=== PATIENT | female | born 1985 | race Caucasian/White ===

== ENCOUNTER 2018-04-01 09:09 | Emergency (ER) | payer OTHER ==
[~2018-04-01] VITALS: Ht 167.6 cm; Wt 76.8 kg
[2018-04-01 09:17] VITALS: TEMP 36.9; Ht 167.6 cm; Wt 76.8 kg
[2018-04-01] MEDS ORDERED: SODIUM CHLORIDE 0.9% 1000ML 1,000 ML IV STA (09:47)
[2018-04-01] MEDS ORDERED: MULT-506 PO (09:56)
[2018-04-01] MEDS ORDERED: FLUO20CA35 PO (09:56)
[2018-04-01] MEDS ORDERED: OMEG10007 PO (09:56)
[2018-04-01] MEDS ORDERED: CYAN100T PO (09:56)
[2018-04-01] MEDS ORDERED: CHOL100010 PO (09:56)
[2018-04-01] MEDS ORDERED: MAGN400T6 PO (09:56)
[2018-04-01 10:12] LABS: BASO % 0.6 %; BASO ABS # 0.04 K/uL (0-0.2); EOS % 1.1 %; EOS ABS # 0.07 K/uL (0-0.5); HEMOGLOBIN 12.6 g/dL (12.0-16.0); IG# 0.02 K/uL (0.00-0.02); LYMPH % 24.6 %; MEAN CELL VOLUME 89.2 fL (80-100); MEAN CORPUSCULAR HEMOGLOBIN 30.4 pg (25-34); MEAN CORPUSCULAR HGB CONC 34.1 g/dl (32-36); MEAN PLATELET VOLUME 9.6 fL (7.4-10.4); MONO % 9.7 %; MONO ABS # 0.63 K/uL (0.11-0.59); NEUT % 63.7 %; NEUT ABS # 4.15 K/uL (1.4-6.5); PLATELET COUNT 259 K/uL (130-400); RED CELL DISTRIBUTION WIDTH CV 12.8 % (11.5-14.5); RED CELL DISTRIBUTION WIDTH SD 41.1 fL (36.4-46.3); WHITE BLOOD COUNT 6.51 K/uL (4.8-10.8)
[2018-04-01 10:22] LABS: PTT PATIENT 25.9 SECONDS (21.0-31.0)
[2018-04-01 10:31] LABS: ALBUMIN 3.7 gm/dl (3.4-5.0); CALCIUM 8.6 mg/dl (8.5-10.1); CREATININE 0.76 mg/dl (0.60-1.20); POTASSIUM 3.8 mmol/L (3.5-5.1); TOTAL PROTEIN 7.4 gm/dl (6.4-8.2)
--- NOTE | 2018-04-01 12:10 | DIAGNOSTIC IMAGING REPORT ---
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 Uterus measures 10.4 cm maximum. Endometrial thickness 1.4 cm. Left ovary measures 2.7 cm. Normal vascular flow. Right ovary measures 3.1 cm. There is 1.9 cm follicular cyst. IMPRESSION: Right ovary 1.9 cm follicular cyst. Otherwise negative study. No evidence for an intrauterine gestational sac. The above report was generated using voice recognition software. It may contain grammatical, syntax or spelling errors. Electronically signed by: Casey Elliott M.D. 04/01/2018 12:09 PM Dictated Date/Time: 04/01/2018 12:05 PM
[2018-04-01 13:19] VITALS: BP 129/76; PULSE 68; O2SAT 99
--- NOTE | 2018-04-02 06:57 | EMERGENCY ROOM VISIT NOTE ---
ED Visit Note First contact with patient: 09:26 Chief Complaint: Vaginal bleeding. History of Present Illness: Ms. To is a 33-year-old white female who ambulates into the ED complaining of vaginal bleeding. Starkly patient reports she is para 0, 0. She has had no previous gynecological problems. She does report she had an IUD that was removed approximately 2 years ago without complications. Patient reports her normal menstrual cycle stopped approximately 2 weeks ago. At that time the cycle was normal duration and intensity. Then a day or so after the menstrual cycle stop she noted some spotting. Since that time she reports she has had daily spotting over the last week she had noticed passage of what she felt were clots mixed with "something." She has not saturated any tampons and reports she has been changing her tampons every 4 hours most of which times have at least a small amount of blood on the tampon. Additionally she reports intermittently over the last week she has been having cramping abdominal pain and breast tenderness. She reports at home she took 2 pregnancies both were positive. She is new to the area and contacted the [facility] gynecological group and was referred to the ED for further evaluation and care. Currently patient reports that she is symptom and pain-free. She reports when she has pain she occasionally takes ibuprofen but it is not severe. She has not identified any aggravating or alleviating factors related to her symptoms. She denies any associated lightheadedness, dizziness, headaches, shortness of breath, chest pain, nausea/vomiting, easy bruising, easy bleeding, unusual bleeding, urinary symptoms, hematuria, rectal bleeding. Review of Systems: As noted above in history of present illness. All body systems were reviewed and found to be negative as noted above. Past Medical History: Patient denies. Current Medications: Prozac, multivitamins, [place] fish oil. Allergies to Medications: Patient denies. Social History: Patient is currently employed; she feels safe in her home environment; she denies tobacco use. Physical Examination: Vital Signs: Date Time Temp Pulse Resp B/P (MAP) Pulse Ox O2 Delivery O2 Flow Rate FiO2 04/01/18 13:19 68 16 129/76 99 04/01/18 11:58 65 18 129/76 100 Room Air 04/01/18 10:19 69 18 103/79 100 Room Air 04/01/18 09:17 36.9 99 18 126/80 99 Room Air GENERAL: 33-year-old female in mild distress due to symptoms, nontoxic-appearing , afebrile and hemodynamically stable. NEUROLOGICAL: Awake, alert and oriented to person, place and time. Answering questions appropriately and following commands. Normal gait. Good hand eye coordination. SKIN: Warm, dry and pink. No soft tissue eruptions or trauma noted. HEENT: Atraumatic and normocephalic. PERRLA. Sclera white and conjunctiva pink. Oral cavity moist and pink. Pharynx is nonerythematous or edematous. Speech normal. No lymphadenopathy. Trachea midline. No jugular venous distention. BACK: No tenderness over the bony spine. No CVA tenderness. THORAX: Lungs sounds are clear to auscultation and equal bilaterally with symmetrical chest wall. No wheezing, rales or rhonchi. HEART: Regular rate and rhythm. No gallops, rubs or murmurs are appreciated. ABDOMEN: Flat, soft and nontender. Positive bowel sounds in all quadrants. No guarding, rigidity or organomegaly. GENITALS: External genitalia: Normal hair distribution over labia minor without pubic lice. Vulva without ulcers, vesicles or erythema. Bartholin's, [place]'s and urethral glands without discharge, erythema or palpable masses. Urethra without discharge or inflammation. Introitus well supported. No cystocele, urethrocele, or enterocele. Anus without hemorrhoids, discharge or skin tags. No cervical lymphadenopathy. Speculum exam: Vagina pink, mucosa not atrophy. Small amount of blood was noted in the posterior vaginal vault. Cervix 2 cm in diameter with a small closed os without bleeding. EXTREMITIES: Moves all extremities well on command and with purpose. ED Course: Patient is assessed as noted above. Patient's medication list was reviewed. Laboratory Testing: Test 04/01/18 09:56 04/01/18 10:00 Range/Units White Blood Count 6.51 4.8-10.8 K/uL Red Blood Count 4.15 4.2-5.4 M/uL Hemoglobin 12.6 12.0-16.0 g/dL Hematocrit 37.0 37-47 % Mean Corpuscular Volume 89.2 80-100 fL Mean Corpuscular Hemoglobin 30.4 25-34 pg Mean Corpuscular Hemoglobin Concent 34.1 32-36 g/dl Platelet Count 259 130-400 K/uL Mean Platelet Volume 9.6 7.4-10.4 fL Neutrophils (%) (Auto) 63.7 % Lymphocytes (%) (Auto) 24.6 % Monocytes (%) (Auto) 9.7 % Eosinophils (%) (Auto) 1.1 % Basophils (%) (Auto) 0.6 % Neutrophils # (Auto) 4.15 1.4-6.5 K/uL Lymphocytes # (Auto) 1.60 1.2-3.4 K/uL Monocytes # (Auto) 0.63 0.11-0.59 K/uL Eosinophils # (Auto) 0.07 0-0.5 K/uL Basophils # (Auto) 0.04 0-0.2 K/uL RDW Standard Deviation 41.1 36.4-46.3 fL RDW Coefficient of Variation 12.8 11.5-14.5 % Immature Granulocyte % (Auto) 0.3 % Immature Granulocyte # (Auto) 0.02 0.00-0.02 K/uL Prothrombin Time 10.7 9.0-12.0 SECONDS Prothromb Time International Ratio 1.0 0.9-1.1 Activated Partial Thromboplast Time 25.9 21.0-31.0 SECONDS Partial Thromboplastin Ratio 1.0 Sodium Level 137 136-145 mmol/L Potassium Level 3.8 3.5-5.1 mmol/L Chloride Level 108 98-107 mmol/L Carbon Dioxide Level 26 21-32 mmol/L Anion Gap 3.0 3-11 mmol/L Blood Urea Nitrogen 9 7-18 mg/dl Creatinine 0.76 0.60-1.20 mg/dl Est Creatinine Clear Calc Drug Dose 109.1 ml/min Estimated GFR () 118.6 Estimated GFR (Non- 102.3 BUN/Creatinine Ratio 11.3 10-20 Random Glucose 77 70-99 mg/dl Calcium Level 8.6 8.5-10.1 mg/dl Total Bilirubin 0.5 0.2-1 mg/dl Direct Bilirubin 0.2 0-0.2 mg/dl Aspartate Amino Transf (AST/SGOT) 15 15-37 U/L Alanine Aminotransferase (ALT/SGPT) 22 12-78 U/L Alkaline Phosphatase 59 45-117 U/L Total Protein 7.4 6.4-8.2 gm/dl Albumin 3.7 3.4-5.0 gm/dl Human Chorionic Gonadotropin, Quant 269 mIU/mL Urine Color YELLOW Urine Appearance CLEAR CLEAR Urine pH 6.5 4.5-7.5 Urine Specific [place] 1.004 1.000-1.030 Urine Protein NEG NEG Urine Glucose (UA) NEG NEG Urine Ketones NEG NEG Urine Occult Blood NEG NEG Urine Nitrite NEG NEG Urine Bilirubin NEG NEG Urine Urobilinogen NEG NEG Urine Leukocyte Esterase NEG NEG Urine Test POS NEG Pelvic Ultrasound/ Ultrasound: Was reviewed by myself and read by the radiology showing no evidence of intrauterine gestational sac. Uterus measures 10.4 cm maximum width and endometrial thickness of 1.4 cm. Left ovary measures 2.7 cm with normal vascular flow. Right ovary measures 3.1 cm with a 1.9 follicular cyst. Patient was hydrated with normal saline. Patient was reassessed multiple times during her stay in the emergency department. Patient's case was consulted with Dr. Lofton, buffer inflated pad; she recommended repeat quantitative beta-hCG in 2 days and office follow-up next week. Patient's case was reviewed with Dr. Gann; we agreed on diagnostic approach, treatment, disposition and plan. Patient was educated about today's findings and instructed on her treatment plan ; she verbalized understanding and this plan. Clinical Impression: Vaginal bleeding. Probable spontaneous . Disposition: Patient discharged home in stable condition accompanied by her fianc; prior to departure she was reassessed and subjectively reported she remained pain-free. Plan: Patient was encouraged use ibuprofen or acetaminophen as needed for pain. Patient was encouraged to avoid tampon use and use pads. Vaginal rest was encouraged. Patient was encouraged to return to the hospital for a repeat beta-hCG in 48 hours. Patient was encouraged to contact the gynecological group on Wednesday and request follow-up care and treatment. Patient was encouraged return the ED for worsening bleeding, uncontrolled pain, fevers or any new/concerning symptoms.
--- NOTE | 2018-04-04 12:10 | DIAGNOSTIC IMAGING REPORT ---
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 Uterus measures 10.4 cm maximum. Endometrial thickness 1.4 cm. Left ovary measures 2.7 cm. Normal vascular flow. Right ovary measures 3.1 cm. There is 1.9 cm follicular cyst. IMPRESSION: Right ovary 1.9 cm follicular cyst. Otherwise negative study. No evidence for an intrauterine gestational sac. The above report was generated using voice recognition software. It may contain grammatical, syntax or spelling errors. Electronically signed by: Casey Elliott M.D. 04/01/2018 12:09 PM Dictated Date/Time: 04/01/2018 12:05 PM
== END 2018-04-01 13:20 | disposition home or self-care (01) ==
LOC: C.EDB 09:10 → C.EDA 13:20
DX: N93.9 Abnormal uterine and vaginal bleeding, unspecified (principal); Z79.899 Other long term (current) drug therapy

== ENCOUNTER → 2018-04-04 | Outpatient (CLI) | payer OTHER ==
[~2018-04-04] MED LIST: CHOL100010 PO; CYAN100T PO; FLUO20CA35 PO; MAGN400T6 PO; MULT-506 PO; OMEG10007 PO; ONDA4TAB10 SL
== END | disposition home or self-care (01) ==
LOC: C.LAB 18:09
PROVIDERS: ATTEND Obstetrics & Gynecology
DX: O03.9 Complete or unspecified spontaneous abortion without complication (principal)

== ENCOUNTER → 2018-04-06 | Outpatient (CLI) | payer OTHER | END | disposition home or self-care (01) | LOC: C.LAB 17:56 | PROVIDERS: ATTEND Obstetrics & Gynecology | DX: O03.9 Complete or unspecified spontaneous abortion without complication (principal); Z3A.00 Weeks of gestation of pregnancy not specified ==

== ENCOUNTER → 2018-04-08 | Outpatient (CLI) | payer OTHER ==
[2018-04-08 10:33] LABS: BASO % 0.8 %; BASO ABS # 0.05 K/uL (0-0.2); EOS % 1.3 %; EOS ABS # 0.08 K/uL (0-0.5); HEMATOCRIT 38.6 % (37-47); IG# 0.02 K/uL (0.00-0.02); LYMPH % 33.9 %; LYMPH ABS # 2.04 K/uL (1.2-3.4); MEAN CELL VOLUME 89.8 fL (80-100); MEAN CORPUSCULAR HEMOGLOBIN 30.2 pg (25-34); MEAN PLATELET VOLUME 9.9 fL (7.4-10.4); MONO % 7.8 %; MONO ABS # 0.47 K/uL (0.11-0.59); NEUT % 55.9 %; NEUT ABS # 3.36 K/uL (1.4-6.5); PLATELET COUNT 277 K/uL (130-400); RED CELL DISTRIBUTION WIDTH CV 12.9 % (11.5-14.5); RED CELL DISTRIBUTION WIDTH SD 41.6 fL (36.4-46.3); WHITE BLOOD COUNT 6.02 K/uL (4.8-10.8)
[2018-04-08 10:45] LABS: MEAN CORPUSCULAR HGB CONC 33.7 g/dl (32-36)
[2018-04-08 10:59] LABS: ALKALINE PHOSPHATASE 61 U/L (45-117); ALT/SGPT 29 U/L (12-78); AST/SGOT 20 U/L (15-37); BLOOD UREA NITROGEN 11 mg/dl (7-18); CALCIUM 8.8 mg/dl (8.5-10.1); CARBON DIOXIDE 25 mmol/L (21-32); CREATININE 0.69 mg/dl (0.60-1.20); GLUCOSE 79 mg/dl (70-99); POTASSIUM 4.3 mmol/L (3.5-5.1); SODIUM 138 mmol/L (136-145); TOTAL PROTEIN 7.9 gm/dl (6.4-8.2)
== END | disposition home or self-care (01) ==
LOC: C.LAB1850 09:54
PROVIDERS: ATTEND Obstetrics & Gynecology
DX: O03.9 Complete or unspecified spontaneous abortion without complication (principal)

== ENCOUNTER 2018-04-12 17:32 | Emergency (ER) | payer OTHER ==
[~2018-04-12] VITALS: Ht 162.6 cm; Wt 76.3 kg
[~2018-04-12 17:32] MED LIST changes: -ONDA4TAB10 SL
[2018-04-12 17:37] VITALS: TEMP 36.7; Ht 162.6 cm; Wt 76.3 kg
[2018-04-12] MEDS ORDERED: FAMOTIDINE 20MG/5ML IV PUSH IV STA (18:14)
[2018-04-12] MEDS ORDERED: SODIUM CHLORIDE 0.9% 1000ML 1,000 ML IV STA (18:14)
[2018-04-12] MEDS ORDERED: IBUPROFEN 600 MG TAB PO STA (18:14)
--- NOTE | 2018-04-12 18:25 | EMERGENCY ROOM VISIT NOTE ---
History Report prepared by Brown: Maria D Ruiz Under the Supervision of: Dr. Michoacano Blancas M.D. First contact with patient: 17:56 Chief Complaint: VAGINAL BLEEDING Stated Complaint: SEVERE CRAMPING, MORE VAGINAL BLEEDING History of Present Illness The patient is a 33 year old female who presents to the Emergency Room with complaints of worsening vaginal bleeding. The patient states that last night she woke up to pain last night that she states felt similar to when she had gallstones, but states that the pain was lower in her abdomen and in her lower back. The patient states that she had nausea and vomiting, and had many more bowel movements than normal. The patient also states that she had a fever last night. The patient states that she has been peeing fine. The patient states that yesterday she was also bleeding more than she has been. The patient states that her pain is currently better, but she took Tylenol at around 1630. The patient states that she has not had any nausea today but has been having bouts of sharp pain. She states that her pain today is in her lower abdomen and lower back. She also states that she has a deep pain in her right buttock. The patient states that she was and had either a miscarriage or ectopic . She states her HCG levels were in the 400s. The patient states that she came in to the ED two weeks ago because she was bleeding, and she found out she was . She states that they thought she had a miscarriage, but then her hormone levels went up. The patient states that four days ago she went to her OB where they did another ultrasound. She states that her OB told her that her fallopian tubes were larger and darker than they should be, so they did not know exactly what happened, but suggested she get methotrexate immediately. The patient states that the second day afterwards she was feeling bloated, gassy, and uncomfortable. The patient also states that she felt like she had to poop a lot. Source of History: patient Onset: two weeks ago Position: other (vagina) Quality: other (bleeding ) Timing: worsening Associated Symptoms: + fevers, + nausea, + vomiting, + abdominal pain, + back pain, No urinary symptoms Review of Systems See HPI for pertinent positives and negatives. A total of ten systems were reviewed and were otherwise negative. Past Medical & Surgical Medical Problems: (1) Gallstone Social History Smoking Status: Never Smoker Marital Status: in relationship Occupation Status: employed Current/Historical Medications Scheduled Cholecalciferol (Vitamin D), 1 TAB PO DAILY Cyanocobalamin (Vitamin B-12), 1 TAB PO DAILY Fish Oil ([place]-3), 1 CAP PO DAILY Fluoxetine (Prozac), 20 MG PO DAILY Magnesium Oxide (Mag-Ox), 400 MG PO DAILY Multivitamin (Multivitamin), 1 TAB PO DAILY Ondasetron Odt (Zofran Odt), 4 MG SL Q6H Allergies Coded Allergies: No Known Allergies (Unverified , 04/12/18) Physical Exam Vital Signs Date Time Temp Pulse Resp B/P (MAP) Pulse Ox O2 Delivery O2 Flow Rate FiO2 04/12/18 19:25 76 16 130/76 99 Room Air 04/12/18 17:37 36.7 64 20 126/79 100 Room Air Physical Exam GENERAL: Awake, alert, well-appearing HENT: Normocephalic, atraumatic. Oropharynx unremarkable. EYES: Normal conjunctiva. Sclera non-icteric. NECK: Supple. No nuchal rigidity. RESPIRATORY: Clear to auscultation. No wheezes. Normal respiratory effort. CARDIAC: Normal rate. Normal rhythm. Extremities warm and well perfused. GI: Soft, non-distended. No rebound or guarding. No masses. Very mild suprapubic tenderness RECTAL: Deferred. MUSCULOSKELETAL: Atraumatic. Chest examination reveals no tenderness. LOWER EXTREMITIES: Calves are equal size bilaterally and non-tender. No edema NEURO: Normal sensorium. No sensory or motor deficits noted. No facial droop. SKIN: Warm and dry. No rash or jaundice noted. Medical Decision & Procedures Laboratory Results 04/12/18 18:20 Red Blood Count 3.90, Mean Corpuscular Volume 89.0, Mean Corpuscular Hemoglobin 29.7, Mean Corpuscular Hemoglobin Concent 33.4, Mean Platelet Volume 9.8, Neutrophils (%) (Auto) 73.8, Lymphocytes (%) (Auto) 19.5, Monocytes (%) (Auto) 5.9, Eosinophils (%) (Auto) 0.2, Basophils (%) (Auto) 0.3, Neutrophils # (Auto) 7.68, Lymphocytes # (Auto) 2.03, Monocytes # (Auto) 0.61, Eosinophils # (Auto) 0.02, Basophils # (Auto) 0.03 04/12/18 18:20 Test 04/12/18 18:20 04/12/18 19:25 White Blood Count 10.40 K/uL (4.8-10.8) Red Blood Count 3.90 M/uL (4.2-5.4) Hemoglobin 11.6 g/dL (12.0-16.0) Hematocrit 34.7 % (37-47) Mean Corpuscular Volume 89.0 fL (80-100) Mean Corpuscular Hemoglobin 29.7 pg (25-34) Mean Corpuscular Hemoglobin Concent 33.4 g/dl (32-36) Platelet Count 301 K/uL (130-400) Mean Platelet Volume 9.8 fL (7.4-10.4) Neutrophils (%) (Auto) 73.8 % Lymphocytes (%) (Auto) 19.5 % Monocytes (%) (Auto) 5.9 % Eosinophils (%) (Auto) 0.2 % Basophils (%) (Auto) 0.3 % Neutrophils # (Auto) 7.68 K/uL (1.4-6.5) Lymphocytes # (Auto) 2.03 K/uL (1.2-3.4) Monocytes # (Auto) 0.61 K/uL (0.11-0.59) Eosinophils # (Auto) 0.02 K/uL (0-0.5) Basophils # (Auto) 0.03 K/uL (0-0.2) RDW Standard Deviation 40.1 fL (36.4-46.3) RDW Coefficient of Variation 12.5 % (11.5-14.5) Immature Granulocyte % (Auto) 0.3 % Immature Granulocyte # (Auto) 0.03 K/uL (0.00-0.02) Prothrombin Time 10.7 SECONDS (9.0-12.0) Prothromb Time International Ratio 1.0 (0.9-1.1) Activated Partial Thromboplast Time 24.2 SECONDS (21.0-31.0) Partial Thromboplastin Ratio 0.9 Anion Gap 7.0 mmol/L (3-11) Est Creatinine Clear Calc Drug Dose 118.3 ml/min Estimated GFR () 132.9 Estimated GFR (Non- 114.7 BUN/Creatinine Ratio 11.6 (10-20) Calcium Level 8.9 mg/dl (8.5-10.1) Total Bilirubin 0.2 mg/dl (0.2-1) Aspartate Amino Transf (AST/SGOT) 16 U/L (15-37) Alanine Aminotransferase (ALT/SGPT) 27 U/L (12-78) Alkaline Phosphatase 56 U/L (45-117) Total Protein 7.6 gm/dl (6.4-8.2) Albumin 3.8 gm/dl (3.4-5.0) Globulin 3.8 gm/dl (2.5-4.0) Albumin/Globulin Ratio 1.0 (0.9-2) Human Chorionic Gonadotropin, Quant 276 mIU/mL Urine Color YELLOW Urine Appearance CLEAR (CLEAR) Urine pH 5.0 (4.5-7.5) Urine Specific [place] 1.008 (1.000-1.030) Urine Protein NEG (NEG) Urine Glucose (UA) NEG (NEG) Urine Ketones NEG (NEG) Urine Occult Blood NEG (NEG) Urine Nitrite NEG (NEG) Urine Bilirubin NEG (NEG) Urine Urobilinogen NEG (NEG) Urine Leukocyte Esterase NEG (NEG) Laboratory results reviewed by me Medications Administered Medications (Trade) Dose Ordered Sig/[place] Route Start Time Stop Time Status Last Admin Dose Admin Sodium Chloride 1,000 ml @ 999 mls/hr Q1H1M STAT IV 04/12/18 18:14 04/12/18 19:14 DC 04/12/18 18:33 999 MLS/HR Ibuprofen (Motrin Tab) 600 mg NOW STAT PO 04/12/18 18:14 04/12/18 18:16 DC 04/12/18 18:34 600 MG Famotidine (Pepcid 20mg Iv Push) 20 mg ONE STAT IV 04/12/18 18:14 04/12/18 18:16 DC 04/12/18 18:33 20 MG ED Course 175: The patient was evaluated in room C5. A complete history and physical exam was performed. 1813: Ordered Famotidine 20 mg IV, Ibuprofen 600 mg PO, and Sodium Chloride 1000 ml @ 999 mls/hr. 1924: I reevaluated the patient. Discussed results and discharge instructions: She verbalized understanding and agreement. The patient is ready for discharge. Medical Decision Differential diagnosis: Etiologies such as ectopic , dysfunction uterine bleeding, bleeding dyscrasia, trauma, infection, as well as others were entertained. Patient received methotrexate 4 days ago for of unknown location. . Began to experience cramping bloating and vaginal bleeding. Nausea times. Benign abdomen at this point. Just had an ultrasound on Wednesday. Do not believe this is torsion. Doubt perforation or ruptured ectopic. Doubt UTI. Labs for hepatitis and pancreatitis were sent along with blood counts. Likely this is medication side effects of methotrexate treatment course. Blood count without significant abnormality. HCG level is decreasing and there is no signs of anemia. Do not believe need additional imaging today. 1 dose of Motrin given. Will avoid additional NSAIDs. Patient continues Tylenol at home and given Zofran if needed. Recommend she continue to follow with her OB. HCG level is decreasing and there is no signs of anemia. Patient in agreement with plan. Medication Reconcilliation Current Medication List: was personally reviewed by me Blood Pressure Screening Patient's blood pressure: Normal blood pressure Impression Primary Impression: Vaginal bleeding Additional Impression: Miscarriage Scribe Attestation The scribe's documentation has been prepared under my direction and personally reviewed by me in its entirety. I confirm that the note above accurately reflects all work, treatment, procedures, and medical decision making performed by me. Departure Information Dispostion Home / Self-Care Prescriptions Ondasetron Odt (ZOFRAN ODT) 4 Mg Tab 4 MG SL Q6H for Nausea, #10 TAB Prov: Michoacano Blancas M.D. 04/12/18 Referrals No Doctor, Assigned (PCP) Forms HOME CARE DOCUMENTATION FORM, IMPORTANT VISIT INFORMATION, WORK / SCHOOL INSTRUCTIONS Patient Instructions My [facility] Additional Instructions Please continue to follow with your cutter banana room. Utilize Tylenol up to 1g 4 times a day to help with your symptoms. Utilize the Zofran if you experience nausea. If you experience new or concerning symptoms at any time he can return here for reevaluation sooner. Problem Qualifiers
[2018-04-12 18:35] LABS: BASO % 0.3 %; BASO ABS # 0.03 K/uL (0-0.2); EOS % 0.2 %; EOS ABS # 0.02 K/uL (0-0.5); HEMATOCRIT 34.7 % (37-47); HEMOGLOBIN 11.6 g/dL (12.0-16.0); IG# 0.03 K/uL (0.00-0.02); LYMPH % 19.5 %; LYMPH ABS # 2.03 K/uL (1.2-3.4); MEAN CORPUSCULAR HEMOGLOBIN 29.7 pg (25-34); MEAN CORPUSCULAR HGB CONC 33.4 g/dl (32-36); MEAN PLATELET VOLUME 9.8 fL (7.4-10.4); MONO % 5.9 %; MONO ABS # 0.61 K/uL (0.11-0.59); NEUT % 73.8 %; NEUT ABS # 7.68 K/uL (1.4-6.5); PLATELET COUNT 301 K/uL (130-400); RED CELL DISTRIBUTION WIDTH CV 12.5 % (11.5-14.5); RED CELL DISTRIBUTION WIDTH SD 40.1 fL (36.4-46.3)
[2018-04-12 18:45] LABS: PTT PATIENT 24.2 SECONDS (21.0-31.0)
[2018-04-12 18:56] LABS: ALBUMIN 3.8 gm/dl (3.4-5.0); CALCIUM 8.9 mg/dl (8.5-10.1); CREATININE 0.67 mg/dl (0.60-1.20); POTASSIUM 3.5 mmol/L (3.5-5.1); TOTAL PROTEIN 7.6 gm/dl (6.4-8.2)
[2018-04-12 19:25] VITALS: BP 130/76; PULSE 76; O2SAT 99
[2018-04-12] MEDS ORDERED: ONDA4TAB10 SL (19:43)
== END 2018-04-12 20:05 | disposition home or self-care (01) ==
LOC: C.EDB 17:33 → C.EDC 20:05
DX: O03.9 Complete or unspecified spontaneous abortion without complication (principal); Z79.899 Other long term (current) drug therapy

== ENCOUNTER → 2018-04-12 | Outpatient (CLI) | payer OTHER | END | disposition home or self-care (01) | LOC: C.LAB1850 12:45 | PROVIDERS: ATTEND Obstetrics & Gynecology | DX: O00.90 Unspecified ectopic pregnancy without intrauterine pregnancy (principal) ==

== ENCOUNTER → 2018-04-15 | Outpatient (CLI) | payer OTHER ==
[~2018-04-15] MED LIST changes: +ONDA4TAB10 SL
[2018-04-15 09:35] LABS: BASO % 0.7 %; BASO ABS # 0.04 K/uL (0-0.2); EOS % 2.2 %; EOS ABS # 0.13 K/uL (0-0.5); HEMATOCRIT 34.9 % (37-47); HEMOGLOBIN 11.8 g/dL (12.0-16.0); IG# 0.01 K/uL (0.00-0.02); LYMPH % 24.6 %; LYMPH ABS # 1.47 K/uL (1.2-3.4); MEAN CELL VOLUME 89.7 fL (80-100); MEAN CORPUSCULAR HEMOGLOBIN 30.3 pg (25-34); MEAN PLATELET VOLUME 9.4 fL (7.4-10.4); MONO ABS # 0.72 K/uL (0.11-0.59); NEUT % 60.3 %; NEUT ABS # 3.61 K/uL (1.4-6.5); PLATELET COUNT 282 K/uL (130-400); RED CELL DISTRIBUTION WIDTH CV 12.7 % (11.5-14.5); RED CELL DISTRIBUTION WIDTH SD 40.6 fL (36.4-46.3); WHITE BLOOD COUNT 5.98 K/uL (4.8-10.8)
[2018-04-15 09:44] LABS: MEAN CORPUSCULAR HGB CONC 33.8 g/dl (32-36)
[2018-04-15 10:04] LABS: ALBUMIN 3.8 gm/dl (3.4-5.0); ALKALINE PHOSPHATASE 59 U/L (45-117); ALT/SGPT 28 U/L (12-78); AST/SGOT 18 U/L (15-37); BLOOD UREA NITROGEN 13 mg/dl (7-18); CREATININE 0.75 mg/dl (0.60-1.20); TOTAL PROTEIN 7.4 gm/dl (6.4-8.2)
== END | disposition home or self-care (01) ==
LOC: C.LAB1850 08:54
PROVIDERS: ATTEND Obstetrics & Gynecology
DX: O00.90 Unspecified ectopic pregnancy without intrauterine pregnancy (principal)

== ENCOUNTER 2019-12-20 23:22 | Inpatient (IN) ==
[2019-12-20] MEDS ORDERED: OXYTOCIN 30 UNITS/500 ML BAG IV PRN ×2 (23:41→23:56)
--- NOTE | 2019-12-20 23:48 | History & Physical Report ---
Date of Service December 20, 2019 Assessment & Plan (1) Supervision of elderly primigravida: (2) Rubella non-immune status, antepartum: early labor, discussed admission. pt desires and desires epidural, aware that may require pitocin in labor pattern irreg and she agrees. fhts categ 1. iv, labs. consult anesthesia History of Present Illness Chief Complaint: rectal pain, constant, painful ctx Primary Care Provider: Nahed Falcon MD 34yo at 40 2/7wks ega with edc 12/18/19 with above cc. She has had on and off ctx since wednesday. Very tired. Was in L&D earlier today with painful ctx, not in labor and sent home with ambien for rest. She then called within past hour noting extreme constant rectal pain with intermittent >30sec pain that could be ctx. she denies rom. no vb. cx exam earlier today was 3cm. pnc c/b 1. ama 2. needs mmr pp 3. 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 Rubella non-immune status, antepartum Anxiety and depression Allergies Allergy/AdvReac Type Severity Reaction Status Date / Time No Known Drug Allergies Allergy Verified 12/14/19 11:23 Home Medications Home Medications Medication Instructions Recorded Confirmed Type fluoxetine 20 mg capsule 20 mg PO DAILY #30 cap 09/13/19 12/20/19 Rx PNV cmb#95-ferrous fumarate-FA 1 tab PO DAILY 12/20/19 12/20/19 History [] Patient History Medical History (Updated 12/20/19 @ 14:29 by Litzy Hui MD, FACOG) Ectopic Gallstone (Resolved) Shingles age 14 Varicella Surgical History (Updated 05/04/19 @ 10:28 by Sylvia Do) S/P cholecystectomy S/P wisdom tooth extraction Family History (Updated 08/08/19 @ 08:20 by Sarah Myrick) Father Diabetes Dementia Depression Mother Heart murmur Osteoporosis Thyroid disease Family/Other Breast cancer Grandmother Cancer Dementia Grandfather Cancer Dementia Denies family history of Ovarian cancer Prostate cancer Myocardial infarction Colorectal cancer Social History (Updated 08/08/19 @ 08:21 by Sarah Myrick) Preferred Language: Macedonian Communication Ability: Effective Visual Impairment: No Limitations Hearing Ability: Normal Medical Pathology Teacher Required: No Beliefs That Will Affect Care: None marital status: marital status details: Fran Ace [phone]) [phone] Current Living Situation: Spouse Current Living Situation Comment: [place] current occupational status: employed 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 @ [employer] Feels Safe at Home: Yes Smoking Status: Never smoker Hx Alcohol Use: No Hx Substance Use: No Childhood Exposure to Second-Hand Smoke: No Dental Care, Regularly: No Physical Activity Frequency: 3-4 Times per Week Seatbelt Use: always Sunscreen Use: Yes Review of Systems no fever as per Subjective / HPI no dysuria and no abnormal vaginal bleeding Physical Exam Constitutional: WD/WN, vitals as above Gastrointestinal (Abdomen): Percussion/Palpation: abdomen soft (gravid); abdomen nontender Musculoskeletal: no edema Neurologic: grossly normal Psychiatric: A+Ox3, euthymic affect Genitourinary: OB Exam Abdomen: + estimated weight (7-8#) Manual OB Exam: + cervical dilation 4 cm, + cervical effacement 100% and + station -1 OB Exam Monitor Tracing: + external FHT monitor used (130 mod variability, reactive), + external uterine monitor used (q4), + category I and + normal FHT variability Results & Data Vital Signs (Past 12 Hours) Vital Signs Pulse BP 12/20/19 23:42 69 134/81 Coding Level of Care Code None Diagnoses Supervision of elderly primigravida O09.519 Rubella non-immune status, antepartum O99.89; Z28.3
[2019-12-21] MEDS: LACTATED RINGER'S 1,000 ML IV PRN ×3 (00:11→08:44)
[2019-12-21 00:17] LABS: Hematocrit (blood only) 35.9 % (37-47); Hemoglobin 12.6 g/dL (12.0-16.0); Mean Corpuscular Hemoglobin 31.5 pg (25-34); Mean Corpuscular Volume 89.8 fL (80-100); Mean Platelet Volume 10.5 fL (7.4-10.4); Platelet Count 241 K/uL (130-400); RDW Coefficient of Variation 13.1 % (11.5-14.5); RDW Standard Deviation 42.6 fL (36.4-46.3); White Blood Count 17.89 K/uL (4.8-10.8)
[2019-12-21 00:20] LABS: Mean Corpuscular Hgb Conc 35.1 g/dL (32-36)
[2019-12-21] MEDS ORDERED: ePHEDrine sulfate 50 MG/ML AMP ONE (00:28)
[2019-12-21] MEDS ORDERED: BUPIVACAINE 0.25% 30 ML VIAL ONE (00:29)
[2019-12-21] MEDS ORDERED: fentaNYL citrate 100 MCG/2 ML VIAL ONE (00:29)
[2019-12-21] MEDS ORDERED: fentaNYL 2MCG/ML ROPIV 1.25MG/ML 100 ML BAG EPI ONE (00:29)
--- NOTE | 2019-12-21 00:39 | Anesthesiology Consultation ---
Date of Service December 21, 2019 Assessment & Plan (1) Encounter for pre-operative examination: Chart Review Chart Review: Acceptable Risk for Labor Epidural Consults Requested none ASA ASA2 Proposed Anesthesia Anesthesia Type: Labor Epidural Risk / Benefits Reviewed With: PT / POA / Parent / Guardian, Accepts Plan and Informed Consent Obtained History Height/Weight Height: 5 ft 6 in Weight: 87.997 kg Allergies Allergy/AdvReac Type Severity Reaction Status Date / Time No Known Drug Allergies Allergy Verified 12/14/19 11:23 Medications Home Medications Medication Instructions Recorded Confirmed Last Taken fluoxetine 20 mg capsule 20 mg PO DAILY #30 cap 09/13/19 12/21/19 12/19/19 18:00 PNV cmb#95-ferrous fumarate-FA 1 tab PO DAILY 12/20/19 12/20/19 12/19/19 18:00 [] Active Medications Generic Name Dose Route Start Last Admin Trade Name Freq PRN Reason Stop Dose Admin Lactated Ringer's 1,000 mls @ 125 mls/hr 12/20/19 23:41 12/21/19 00:11 Lr IV 12/22/19 23:40 999 mls/hr .Q8H PRN Administration L&D Protocol Protocol Past Medical History Medical History Ectopic Gallstone (Resolved) Shingles age 14 Varicella Exercise / Class Metabolic Activity II 4-5 Yardwork/Stairs/Walk up hill Past Family History Family History Father Diabetes Dementia Depression Mother Heart murmur Osteoporosis Thyroid disease Family/Other Breast cancer Grandmother Cancer Dementia Grandfather Cancer Dementia Denies family history of Ovarian cancer Prostate cancer Myocardial infarction Colorectal cancer Past Surgical History Surgical History S/P cholecystectomy S/P wisdom tooth extraction Past Anesthesia History No Hx of Anesthesia Complications and No Family Hx of Anesthesia Complications History of PONV No Hx of PONV and No Hx of Motion Sickness Social History Smoking Status: Never smoker Do You Dip or Chew Tobacco: No Hx Alcohol Use: No Hx Substance Use: No substance use type: does not use Physical Exam Vital Signs Last Vital Signs Temp 98.4 F 12/20/19 23:50 Pulse 69 12/20/19 23:50 Resp 20 12/20/19 23:50 BP 134/81 12/20/19 23:50 ENMT Mouth: no dentition abnormality Thyromental Distance: > or= 3.5 Finger Breadths Mallampati Class: II Neck normal visual inspection Respiratory normal respiratory effort Auscultation: lungs clear to auscultation bilaterally Cardiovascular Rate/Rhythm: regular rate and regular rhythm Testing Laboratory Results 12/21/19 00:09
[2019-12-21] MEDS ORDERED: fentaNYL 2MCG/ML ROPIV 1.25MG/ML 100 ML BAG EPI PRN (00:59)
[2019-12-21] MEDS ORDERED: NALOXONE HCL 1 MG in SODIUM CHLORIDE 0.9% 1000ML 1,000 ML IV PRN (00:59)
[2019-12-21] MEDS ORDERED: NALOXONE HCL 0.4 MG/1 ML VIAL/CARP IV PRN (00:59)
[2019-12-21] MEDS ORDERED: DiphenhydrAMINE HCL 50 MG/ML VIAL IV PRN (00:59)
[2019-12-21] MEDS ORDERED: NALBUPHINE HCL INJ 10 MG/ML AMP IV PRN (00:59)
[2019-12-21] MEDS ORDERED: ONDANSETRON INJ 2 MG/ML 2 ML VIAL IV PRN (00:59)
[2019-12-21] MEDS ORDERED: ePHEDrine sulfate 50 MG/ML AMP IV PRN (00:59)
[2019-12-21] MEDS: CALCIUM CARBONATE 500 MG CHEWABLE TAB PO PRN ×2 (01:25→06:17)
--- NOTE | 2019-12-21 07:12 | Labor Progress Brief Note ---
Date of Service December 21, 2019 Subjective Reason For Note: Routine Evaluation comfortable with epidual and expresses relief that she got it. no pressure. occas left back pain. Assessment & Plan (1) Supervision of elderly primigravida: (2) Rubella non-immune status, antepartum: good progress in spont labor. fhts categ1. meconium stained fluid reviewed. Physical Exam Constitutional: WD/WN, vitals as above Psychiatric: A+Ox3, euthymic affect Genitourinary: Manual OB Exam: + cervical dilation 8 cm, + cervical effacement 100%, + station 0 and + amniotic fluid (AROM) meconium OB Exam Monitor Tracing: + external FHT monitor used (125 mod variability, reactive), + external uterine monitor used (q3), + category I and + normal FHT variability Results & Data Vital Signs (Past 12 Hours) Vital Signs Temp Pulse Resp BP Pulse Ox 12/21/19 07:07 70 99 12/21/19 07:02 65 98 12/21/19 06:57 64 98 12/21/19 06:55 62 124/72 12/21/19 06:52 65 98 12/21/19 06:47 63 98 12/21/19 06:42 62 98 12/21/19 06:40 58 L 130/71 12/21/19 06:37 57 L 99 12/21/19 06:32 60 98 12/21/19 06:27 59 L 99 12/21/19 06:26 62 131/79 12/21/19 06:22 62 99 12/21/19 06:17 67 99 12/21/19 06:12 60 99 12/21/19 06:09 63 131/86 12/21/19 06:07 65 99 12/21/19 06:02 65 99 12/21/19 05:57 59 L 97 12/21/19 05:54 60 133/69 12/21/19 05:52 59 L 97 12/21/19 05:47 58 L 97 12/21/19 05:42 59 L 97 12/21/19 05:39 58 L 131/65 12/21/19 05:37 58 L 97 12/21/19 05:32 58 L 97 12/21/19 05:27 62 97 12/21/19 05:25 61 117/60 12/21/19 05:22 74 97 12/21/19 05:17 63 97 12/21/19 05:12 65 97 12/21/19 05:10 57 L 119/64 12/21/19 05:07 63 97 12/21/19 05:02 63 97 12/21/19 05:00 18 12/21/19 04:57 65 97 12/21/19 04:54 62 108/59 L 12/21/19 04:52 64 97 12/21/19 04:47 61 97 12/21/19 04:42 65 98 12/21/19 04:39 67 116/64 12/21/19 04:37 65 98 12/21/19 04:32 65 98 12/21/19 04:27 64 98 12/21/19 04:25 58 L 120/69 12/21/19 04:22 63 98 12/21/19 04:17 63 98 12/21/19 04:12 64 98 12/21/19 04:11 64 132/68 12/21/19 04:07 59 L 98 12/21/19 04:02 60 98 12/21/19 04:00 97.7 F 20 12/21/19 03:57 58 L 99 12/21/19 03:55 62 129/75 12/21/19 03:52 64 99 12/21/19 03:47 66 99 12/21/19 03:42 60 98 12/21/19 03:40 62 121/67 12/21/19 03:32 71 99 12/21/19 03:27 68 99 12/21/19 03:25 61 112/64 12/21/19 03:22 67 98 12/21/19 03:17 77 98 12/21/19 03:12 67 97 12/21/19 03:10 74 128/72 12/21/19 03:07 65 96 12/21/19 03:02 73 96 12/21/19 02:57 65 96 12/21/19 02:55 62 117/66 12/21/19 02:52 66 96 12/21/19 02:47 63 97 12/21/19 02:42 65 96 12/21/19 02:39 65 100/55 L 12/21/19 02:37 64 96 12/21/19 02:32 70 96 12/21/19 02:27 67 96 12/21/19 02:24 68 107/60 12/21/19 02:22 68 97 12/21/19 02:17 64 96 12/21/19 02:12 72 96 12/21/19 02:09 65 115/62 12/21/19 02:07 70 96 12/21/19 02:02 76 97 12/21/19 01:57 70 96 12/21/19 01:54 68 104/58 L 12/21/19 01:52 71 96 12/21/19 01:47 69 96 12/21/19 01:42 69 97 12/21/19 01:39 72 100/58 L 12/21/19 01:37 72 97 12/21/19 01:32 75 97 12/21/19 01:27 80 98 12/21/19 01:25 70 112/67 12/21/19 01:22 76 98 12/21/19 01:17 85 98 12/21/19 01:12 89 96 12/21/19 01:10 85 127/71 12/21/19 01:07 85 122/68 99 12/21/19 01:05 82 135/68 12/21/19 01:03 86 123/72 12/21/19 01:02 84 99 12/21/19 01:00 77 119/72 12/21/19 00:57 84 100 12/21/19 00:52 75 100 12/21/19 00:47 84 100 12/21/19 00:42 80 100 12/21/19 00:37 76 99 12/20/19 23:50 98.4 F 69 20 134/81 12/20/19 23:42 69 134/81 Coding Level of Care Code None Diagnoses Supervision of elderly primigravida O09.519 Rubella non-immune status, antepartum O99.89; Z28.3
[2019-12-21] MEDS ORDERED: Nursing to Pharmacy Communication ONE (13:20)
--- NOTE | 2019-12-21 14:43 | Delivery Summary ---
Vaginal Delivery Summary Date of Service December 21, 2019 Vaginal Delivery Summary Findings: Viable female with Apgars of 8 and 9. Baby delivered spontaneously over area a midline episiotomy, direct OA presentation. Thick meconium with good vigorous cry at terminated meconium resuscitation. Cord gases and cord blood samples obtained. Placenta delivered spontaneously, meconium stained, and sent for pathological evaluation. Midline episiotomy repaired with 4-0 and 2-0 Vicryl in a routine fashion. Estimated blood loss 300 cc. Labor note: The patient is a 34-year-old 2 para 0 with an EDC of 17 December, at 40+ weeks gestational age who was admitted in active labor. Patient had had prodromal contractions for 36 hours prior to admission. She was discharged home on the day of admission and returned later in active labor. 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 Her was screened and was found to be negative. Laboratory values for the show blood type of O+, antibody negative, rubella immune, hepatitis B negative, she had a negative cell free DNA screen, negative cystic fibrosis, negative maternal serum AFP, -1-hour Glucola x2, and a negative third trimester beta st rep culture. Upon admission the patient was 4 cm dilated 100% effaced tracing was category 2. Anesthesia was consulted and an epidural was placed. Patient progressed to 8 cm had spontaneous rupture of membranes with thick meconium. Patient progressed to full dilatation and began her second stage. Delivering physician assumed care for the patient at this point. The patient pushed for approximately 45 minutes delivering the viable female infant over the midline episiotomy. Cord was clamped and cut. Good vigorous cry at terminated meconium resuscitation. Cord gases cord blood samples obtained. Placenta was delivered spontaneously and sent for pathological evaluation. Midline episiotomy was repaired with 4-0 and 2-0 Vicryl. Estimated blood loss 300 cc. Sponge and needle count was correct.
[2019-12-21 15:04] LABS: Base Excess Cord Venous Blood -5.1 mEq/L (-7.7-1.9); Cord Venous Blood HCO3 21 mmol/L (18.4-26.8); Cord Venous Blood PCO2 41 mmHg (30.4-57.2); Cord Venous Blood PO2 32 mmHg (14.1-43.3); Cord Venous Blood pH 7.32 (7.20-7.44)
[2019-12-21] MEDS ORDERED: HYDROCORTISONE ACETATE 25 MG SUPP PR PRN (15:06)
[2019-12-21] MEDS ORDERED: BENZOCAINE 20% AER SPR 82.5 GM CAN EXT PRN (15:06)
[2019-12-21] MEDS ORDERED: SUPERCREAM 0.870% 15 GM JAR EXT PRN (15:06)
[2019-12-21] MEDS ORDERED: ACETAMINOPHEN W/CODEINE #3 1 TAB PO PRN (15:06)
[2019-12-21] MEDS ORDERED: OXYTOCIN 30 UNITS/500 ML BAG IV PRN (15:06)
[2019-12-21] MEDS ORDERED: DIPHTHERIA/TETANUS/PERTUSSIS 0.5 ML SYR/VIAL IM ONE (15:06)
[2019-12-21] MEDS ORDERED: ACETAMINOPHEN 325 MG TAB PO PRN (15:06)
[2019-12-21 15:09] LABS: Base Excess Cord Arterial Bld -7.3 mEq/L (-9-1.8); CO2 Cord Arterial Blood 64 mmHg (39.1-73.5); HCO3 Cord Arterial Blood 23 mmol/L (19.7-28.5); PO2 Cord Arterial Blood 21 mmHg (4.1-31.7); pH Cord Arterial Blood 7.17 (7.1-7.38)
[2019-12-21 15:13] LABS: Oxygen Sat Cord Arterial Blood < 60.0 % (<60)
--- NOTE | 2019-12-21 15:14 | Anesthesia Procedure Note ---
Date of Service December 21, 2019 Anesthesia Post Epidural Note Vital Signs Vital Signs: Temp Pulse Resp BP Pulse Ox 36.7 C 76 18 125/66 100 12/21/19 11:00 12/21/19 15:09 12/21/19 14:15 12/21/19 15:09 12/21/19 14:07 Pain Intensity Bilateral Perineal: Pain Intensity: 0 Notes Mental Status: alert / awake / arousable Nausea / Vomiting: adequately controlled Pain: adequately controlled Airway Patency, RR, SpO2: stable & adequate BP & HR: stable & adequate Hydration State: stable & adequate Neuraxial Anesthesia: was administered and sensory block is resolving Anesthetic Complications: no major complications apparent and Pt Satisfied with anesthetic care Epidural: Removed without complications and With tip intact
[2019-12-21] MEDS: IBUPROFEN 600 MG TAB PO PRN ×2 (15:34→22:17)
[2019-12-21] MEDS: DOCUSATE SODIUM 100 MG CAP PO SCH (20:27)
[2019-12-22 06:31] LABS: Hematocrit (blood only) 27.2 % (37-47); Hemoglobin 9.3 g/dL (12.0-16.0); Mean Corpuscular Hemoglobin 31.2 pg (25-34); Mean Corpuscular Hgb Conc 34.2 g/dL (32-36); Mean Corpuscular Volume 91.3 fL (80-100); Mean Platelet Volume 10.6 fL (7.4-10.4); Platelet Count 182 K/uL (130-400); RDW Coefficient of Variation 13.4 % (11.5-14.5); RDW Standard Deviation 44.5 fL (36.4-46.3); Red Blood Count 2.98 M/uL (4.2-5.4); White Blood Count 15.11 K/uL (4.8-10.8)
--- NOTE | 2019-12-22 06:48 | Obstetrical Progress Note ---
Date of Service December 22, 2019 Assessment & Plan (1) state: Recovering normally, routine pp care Subjective Ambulation: ambulating normally Voiding: no voiding problems Passing Gas:: Yes Diet Tolerance:: regular diet Lochia:: Small Feeding Type:: breast feeding Physical Exam Constitutional WD/WN, vitals as above Eyes PERRL, conjunctivae normal, anicteric sclerae Neck normal visual inspection Respiratory normal respiratory effort and able to speak in complete sentences; no respiratory distress and no labored breathing Cardiovascular Rate/Rhythm: regular rate and regular rhythm Extremities: no edema Chest (Breasts) Chest: normal inspection of chest Gastrointestinal (Abdomen) Inspection/Auscultation: abdomen normal to inspection Soft, postgravid Psychiatric A+Ox3, euthymic affect Genitourinary OB Exam Abdomen: + fundal height Fundus: + firm and + relation to umbilicus (fundus just below umbilicus); not tender Results & Data Vital Signs (Past 12 Hours) Vital Signs Temp Pulse Resp BP 12/22/19 04:00 98.6 F 70 18 111/66 12/22/19 00:00 98.2 F 70 18 117/70 12/21/19 20:30 97.5 F L 76 18 112/67
[2019-12-22] MEDS: DOCUSATE SODIUM 100 MG CAP PO SCH ×2 (08:15→20:48)
[2019-12-22] MEDS: PRENATAL VITAMIN 1 TAB PO SCH (08:15)
[2019-12-22] MEDS: IBUPROFEN 600 MG TAB PO PRN ×3 (08:16→22:41)
[2019-12-22] MEDS: FLUOXETINE HCL 20 MG CAP PO SCH (08:16)
[2019-12-22] MEDS ORDERED: bisacodyL 5 MG TABEC PO SCH (20:00)
[2019-12-23 06:01] LABS: Hematocrit (blood only) 25.4 % (37-47); Hemoglobin 8.7 g/dL (12.0-16.0)
--- NOTE | 2019-12-23 07:10 | Obstetrical Progress Note ---
Date of Service December 23, 2019 Assessment & Plan (1) state: MEET CRITERIA, HOME Subjective Ambulation: ambulating normally Voiding: no voiding problems Passing Gas:: Yes Lochia:: Small Feeding Type:: breast feeding Physical Exam Constitutional WD/WN, vitals as above (EXT NEG) Genitourinary normal external appearance Results & Data Vital Signs (Past 12 Hours) Vital Signs Temp Pulse Resp BP 12/22/19 23:35 98.1 F 74 16 119/63
[2019-12-23] MEDS: IBUPROFEN 600 MG TAB PO PRN (08:10)
[2019-12-23] MEDS: DOCUSATE SODIUM 100 MG CAP PO SCH (08:10)
[2019-12-23] MEDS: PRENATAL VITAMIN 1 TAB PO SCH (08:10)
[2019-12-23] MEDS: FLUOXETINE HCL 20 MG CAP PO SCH (08:10)
== END 2019-12-23 11:56 | disposition home or self-care (01) | DRG 807 ==
LOC: OPB 23:22 → 4S1 23:24 → 4S2 12-21 17:55

== ENCOUNTER 2023-02-28 23:34 | Inpatient (IN) ==
[2023-03-01] MEDS ORDERED: LIDOCAINE 1% LOCAL 20 ML VIAL INFIL PRN (00:28)
[2023-03-01] MEDS ORDERED: OXYTOCIN 30 UNITS/500 ML BAG IV PRN ×3 (00:28→14:16)
--- NOTE | 2023-03-01 00:40 | History & Physical Report ---
Date of Service March 01, 2023 Assessment & Plan (1) Elderly multigravida: Plan: multiparous female with intact membranes and early labor will ambulate and recheck for progress in 2 hours patient wishes to try unmedicated if possible History of Present Illness Primary Care Provider: Wale Smith III, CRNP Patient is a 38 yo female EDC 03/09/23 who presents at 38 6/7 weeks with leaking fluid and intermittent contractions. complicated by AMA status. testing has been reassuring. GBS-negative. Allergies Allergy/AdvReac Type Severity Reaction Status Date / Time No Known Drug Allergies Allergy Verified 02/25/23 15:39 Home Medications Medication Instructions Recorded Confirmed Type omega-3 fatty acids 1,000 mg 1,000 mg PO DAILY 01/02/20 02/25/23 History capsule (Fish Oil Concentrate) magnesium 200 mg tablet 200 mg PO DAILY 05/28/20 02/25/23 History docosahexaenoic acid [ DHA] PO 07/24/22 02/25/23 History ferrous sulfate PO 07/24/22 02/25/23 History nystatin-triamcinolone 100,000 1 applic topical BID 2 weeks #30 07/28/22 02/25/23 Rx unit/g-0.1 % topical cream grams fluoxetine 20 mg capsule See Rx Instructions .Route 01/06/23 02/25/23 Rx .COMPLEX #90 caps Patient History Medical History Anal fissure Ectopic treated with MTX Gallstone H/o Lyme disease Hemorrhoids state Shingles age 14 Varicella Surgical History S/P cholecystectomy S/P wisdom tooth extraction Family History Father Diabetes Dementia Depression Mother Heart murmur Osteoporosis Thyroid disease Dementia Family/Other Breast cancer Grandmother Cancer Dementia Grandfather Cancer Dementia Denies family history of Ovarian cancer Prostate cancer Myocardial infarction Colorectal cancer Social History Smoking Status: Never smoker Second Hand Exposure: No; Do You Dip or Chew Tobacco: No; Hx Alcohol Use: Yes Alcohol type: beer and wine Alcohol Intake Frequency: 2-3 x/Week Hx Substance Use: No Preferred Language: Kinyarwanda Communication Ability: Effective Visual Impairment: No Limitations Hearing Ability: Normal Corrective Therapist Required: No Beliefs That Will Affect Care: None marital status: marital status details: Fran Ace (37) [phone] Current Living Situation: Spouse and Family Current Living Situation Comment: lives with spouse, daughter, dog current occupational status: employed 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 @ [employer] How many Children do You have: 1 Feels Safe at Home: Yes Childhood Exposure to Second-Hand Smoke: No Diet: regular caffeine: Yes during the past year weight has: remained stable Dental Care, Regularly: No Physical Activity Frequency: 3-4 Times per Week Seatbelt Use: always Sunscreen Use: Yes Assistive Devices: None Review of Systems All systems reviewed & are unremarkable except as noted in HPI & below Physical Exam Constitutional: WD/WN, vitals as above Psychiatric: A+Ox3, euthymic affect Genitourinary: OB Exam Abdomen: + vertex, + estimated weight (7-8 pounds) and + regular contractions (Q4-5 minutes) Manual OB Exam: + cervical dilation 3 cm, + cervical effacement 80%, + station (-3) and + amniotic fluid (nitrazine equivocal) No ferning present OB Exam Monitor Tracing: + external FHT monitor used, + external uterine monitor used, + category I and + normal FHT variability yeast on speculum exam and confirmed on slide. thin mucus discharge. nitrazine equivocal, ferning negative, pooling negative Coding Level of Care Code None Diagnoses Elderly multigravida O09.529
[2023-03-01 00:54] LABS: Hematocrit (blood only) 31.2 % (37.0-47.0); Mean Corpuscular Hgb Conc 35.3 g/dL (32.0-36.0); Mean Corpuscular Volume 87.9 fL (80.0-100.0); Mean Platelet Volume 11.6 fL (9.4-12.4); Platelet Count 184 K/uL (130-400); RDW Coefficient of Variation 12.4 % (11.5-14.5); RDW Standard Deviation 39.8 fL (36.4-46.3); Red Blood Count 3.55 M/uL (4.20-5.40); White Blood Count 11.66 K/ul (4.8-10.8)
[2023-03-01] MEDS: LACTATED RINGER'S 1,000 ML IV PRN ×3 (07:58→10:45)
--- NOTE | 2023-03-01 08:02 | Labor Progress Brief Note ---
Date of Service March 01, 2023 Subjective Met with patient in labor room with Ceci RN at bedside. Had received sign out from overnight o/c MD establishing early labor, with cervical changer fixer last two exams. Patient breathing through contractions and now asking questions about options for augmentation of labor. She has a h/o long labor and wants to avoid a drawn out and exhausting process, but is also hoping to allow for unmedicated delivery, and is weighing her options for moving forward from here. Assessment & Plan (1) Normal labor: Plan: Discussed options for augmentation, and patient elects to begin pitocin. Order placed. Interested in possible AROM with future exam, and considering epidural if she develops significant discomfort later in the process. Ultimately she's very flexible about how things progress, with goals primarily of a vaginal delivery, and secondarily of a natural if possible without compromising her chances of a vaginal delivery in a reasonably short timeframe. Admission and Anticipated Discharge Date Admission Date: March 01, 2023 Physical Exam Genitourinary: FHT Cat 1 Judson Q3-5, both clinically and per toco which is showing a lot of movement artifact. Cervix 4/80/-2 Vertex presentation Mucus plug presenting but no evidence of ROM. Results & Data Vital Signs (Past 12 Hours) Vital Signs Temp Pulse Resp BP 03/01/23 07:15 18 03/01/23 07:15 97.9 F 18 03/01/23 07:09 67 126/84 03/01/23 05:10 101.5 F H 57 L 111/67 Coding Level of Care Code None Diagnoses Normal labor O80; Z37.9
[2023-03-01] MEDS ORDERED: LIDOCAINE 2%/EPINEPHRINE 1:200,000 20 ML PF ONE (08:32)
[2023-03-01] MEDS ORDERED: ePHEDrine sulfate 50 MG/ML AMP ONE (08:32)
[2023-03-01] MEDS ORDERED: fentaNYL citrate PF 100 MCG/2 ML VIAL ONE (08:32)
[2023-03-01] MEDS ORDERED: BUPIVACAINE 0.25% PF 30 ML VIAL ONE (08:32)
[2023-03-01] MEDS ORDERED: SODIUM CHLORIDE 0.9% PF INJ 10 ML VIAL ONE (08:32)
[2023-03-01] MEDS ORDERED: fentaNYL 2MCG/ML ROPIVACAINE 1.25MG/ML 100 ML BAG EPI ONE (08:33)
[2023-03-01] MEDS ORDERED: FLUoxetine HCL 20 MG CAP PO SCH ×2 (09:00→21:00)
--- NOTE | 2023-03-01 10:31 | Anesthesiology Consultation ---
Date of Service March 01, 2023 Assessment & Plan Chart Review Chart Review: Acceptable Risk for Labor Epidural Consults Requested none ASA ASA2 Proposed Anesthesia Anesthesia Type: Labor Epidural Risk / Benefits Reviewed With: PT / POA / Parent / Guardian, Accepts Plan and Informed Consent Obtained History Height/Weight Height: 5 ft 6 in Weight: 88.451 kg Allergies Allergy/AdvReac Type Severity Reaction Status Date / Time No Known Drug Allergies Allergy Verified 02/25/23 15:39 Medications Home Medications Medication Instructions Recorded Confirmed Last Taken omega-3 fatty acids 1,000 mg 1,000 mg PO DAILY 01/02/20 03/01/23 Unknown capsule (Fish Oil Concentrate) magnesium 200 mg tablet 200 mg PO DAILY 05/28/20 02/25/23 Unknown docosahexaenoic acid [ DHA] PO 07/24/22 02/25/23 Unknown ferrous sulfate PO 07/24/22 02/25/23 Unknown nystatin-triamcinolone 100,000 1 applic topical BID 2 weeks #30 07/28/22 0 02/25/23 Unknown unit/g-0.1 % topical cream grams fluoxetine 20 mg capsule See Rx Instructions .Route 01/06/23 02/25/23 Unknown .COMPLEX #90 caps Active Medications Generic Name Dose Route Start Last Admin Trade Name Freq PRN Reason Stop Dose Admin Fluoxetine HCl 20 mg 03/01/23 09:00 03/01/23 07:59 Fluoxetine Hcl 20 Mg Cap PO 03/31/23 08:59 Not Given DAILY JOSE Lactated Ringer's 1,000 mls @ 125 mls/hr 03/01/23 00:28 03/01/23 10:10 Lr IV 03/03/23 00:27 999 mls/hr .Q8H PRN Infusion L&D Protocol Protocol Oxytocin 30 units in 500 mls @ 6 mls/hr 03/01/23 07:56 03/01/23 09:15 Pitocin IV 03/03/23 07:55 0.36 units/hr .Q24H PRN 6 mls/hr Labor Induction/Augmentation Titration Protocol 0.36 UNITS/HR Past Medical History Medical History Anal fissure Ectopic treated with MTX Gallstone H/o Lyme disease Hemorrhoids state Shingles age 14 Varicella Exercise / Class Metabolic Activity II 4-5 Yardwork/Stairs/Walk up hill Past Family History Family History Father Diabetes Dementia Depression Mother Heart murmur Osteoporosis Thyroid disease Dementia Family/Other Breast cancer Grandmother Cancer Dementia Grandfather Cancer Dementia Denies family history of Ovarian cancer Prostate cancer Myocardial infarction Colorectal cancer Past Surgical History Surgical History S/P cholecystectomy S/P wisdom tooth extraction Past Anesthesia History No Hx of Anesthesia Complications and No Family Hx of Anesthesia Complications History of PONV No Hx of PONV and No Hx of Motion Sickness Social History Smoking Status: Never smoker Do You Dip or Chew Tobacco: No Hx Alcohol Use: Yes Alcohol type: beer and wine Hx Substance Use: No substance use type: does not use Physical Exam Vital Signs Last Vital Signs Temp 97.9 F 03/01/23 07:15 Pulse 75 03/01/23 10:28 Resp 18 03/01/23 07:15 BP 128/68 03/01/23 10:28 Pulse Ox 98 03/01/23 10:26 ENMT Mouth: no dentition abnormality Thyromental Distance: > or= 3.5 Finger Breadths Mallampati Class: II Neck normal visual inspection Respiratory normal respiratory effort Auscultation: lungs clear to auscultation bilaterally Cardiovascular Rate/Rhythm: regular rate and regular rhythm Testing Laboratory Results 03/01/23 00:41
[2023-03-01] MEDS ORDERED: diphenhydrAMINE 50 MG/ML VIAL IV PRN (10:56)
[2023-03-01] MEDS ORDERED: ONDANSETRON INJ 2 MG/ML 2 ML VIAL IV PRN (10:56)
[2023-03-01] MEDS ORDERED: BUPIVACAINE 0.25% PF 30 ML VIAL EPI PRN (10:56)
[2023-03-01] MEDS ORDERED: SODIUM CHLORIDE 0.9% PF INJ 10 ML VIAL EPI STA (10:56)
[2023-03-01] MEDS ORDERED: fentaNYL 2MCG/ML ROPIVACAINE 1.25MG/ML 100 ML BAG EPI PRN (10:56)
[2023-03-01] MEDS ORDERED: fentaNYL citrate PF 100 MCG/2 ML VIAL EPI STA (10:56)
[2023-03-01] MEDS ORDERED: SODIUM CHLORIDE 0.9% PF INJ 10 ML VIAL EPI PRN (10:56)
[2023-03-01] MEDS ORDERED: LIDOCAINE 2%/EPINEPHRINE 1:200,000 20 ML PF EPI STA (10:56)
[2023-03-01] MEDS ORDERED: NALBUPHINE HCL INJ 10 MG/ML AMP IV PRN (10:56)
[2023-03-01] MEDS ORDERED: NALOXONE HCL 1 MG in SODIUM CHLORIDE 0.9% 1000ML 1,000 ML IV PRN (10:56)
[2023-03-01] MEDS ORDERED: BUPIVACAINE 0.25% PF 30 ML VIAL EPI STA (10:56)
[2023-03-01] MEDS ORDERED: ROPIVACAINE 0.5% PF 5 MG/ML 20 ML VIAL EPI PRN (10:56)
[2023-03-01] MEDS ORDERED: LIDOCAINE 2% MPF LOCAL 5 ML VIAL EPI PRN (10:56)
[2023-03-01] MEDS ORDERED: NALOXONE HCL 0.4 MG/1 ML VIAL/CARP IV PRN (10:56)
[2023-03-01] MEDS ORDERED: fentaNYL citrate PF 100 MCG/2 ML VIAL EPI PRN (10:56)
[2023-03-01] MEDS ORDERED: ePHEDrine sulfate 50 MG/ML AMP IV PRN (10:56)
[2023-03-01] MEDS ORDERED: NURSING L&D Epidural Breakthrough Pain Update ONE (11:13)
[2023-03-01] MEDS ORDERED: HYDROCORTISONE ACETATE 25 MG SUPP PR PRN (14:16)
[2023-03-01] MEDS ORDERED: DIPHTHERIA/TETANUS/PERTUSSIS Vaccine (Tdap, Age 7+yrs) 0.5mL SYR/VL IM ONE (14:16)
[2023-03-01] MEDS ORDERED: oxyCODONE/ACETAMINOPHEN 5mg/325mg TAB PO PRN (14:16)
[2023-03-01] MEDS ORDERED: BENZOCAINE 20% AER SPR 82.5 GM CAN EXT PRN (14:16)
[2023-03-01] MEDS ORDERED: ACETAMINOPHEN 325 MG TAB PO PRN (14:16)
[2023-03-01] MEDS ORDERED: bisacodyL 10 MG SUPP PR PRN (14:16)
--- NOTE | 2023-03-01 14:18 | Delivery Summary ---
Vaginal Delivery Summary Date of Service March 01, 2023 Vaginal Delivery Summary Spontaneous vaginal delivery the patient is admitted by Dr. John the night before she eventually requested epidural and then artificial rupture of membranes shortly afterwards she pushed and delivered a baby in occiput anterior position there was thin meconium mouth and then nares suctioned with bulb and then gentle traction on the baby without excessive force easy delivery live vigorous male cord clamped and cut cord gases obtained cord blood obtained removed with gentle traction IV Pitocin started second-degree tear repaired with 3-0 Vicryl in the usual fashion there was some anterior abrasions of the clitoral area which was reinforced with a [id number] 3-0 Vicryl sponge and instrument counts were correct [facility] Vaginal Delivery Charge Vaginal Delivery Codes: 65118 vaginal delivery with post- care
[2023-03-01 14:42] LABS: Base Excess Cord Arterial Bld -7.2 mEq/L (-9-1.8); Base Excess Cord Venous Blood -8.1 mEq/L (-7.7-1.9); CO2 Cord Arterial Blood 49 mmHg (39.1-73.5); Cord Venous Blood HCO3 18 mmol/L (18.4-26.8); Cord Venous Blood PCO2 37 mmHg (30.4-57.2); Cord Venous Blood PO2 27 mmHg (14.1-43.3); Cord Venous Blood pH 7.29 (7.20-7.44); HCO3 Cord Arterial Blood 21 mmol/L (19.7-28.5); Oxygen Sat Cord Arterial Blood < 60.0 % (<60); PO2 Cord Arterial Blood 20 mmHg (4.1-31.7); pH Cord Arterial Blood 7.23 (7.1-7.38)
--- NOTE | 2023-03-01 14:46 | Anesthesia Procedure Note ---
Date of Service March 01, 2023 Anesthesia Post Epidural Note Vital Signs Vital Signs: Temp Pulse Resp BP Pulse Ox 97.9 F 72 18 116/59 L 88 L 03/01/23 14:20 03/01/23 14:38 03/01/23 14:35 03/01/23 14:38 03/01/23 14:03 Pain Intensity Lower Abdomen: Pain Intensity: 6 Notes Mental Status: alert / awake / arousable and participated in evaluation Nausea / Vomiting: adequately controlled Pain: adequately controlled Airway Patency, RR, SpO2: stable & adequate BP & HR: stable & adequate Hydration State: stable & adequate Neuraxial Anesthesia: was administered and sensory block is resolving Anesthetic Complications: no major complications apparent and Pt Satisfied with anesthetic care Epidural: Removed without complications and With tip intact
[2023-03-01] MEDS ORDERED: Nursing to Pharmacy Communication SCH (19:30)
[2023-03-01] MEDS: DOCUSATE SODIUM 100 MG CAP PO SCH (20:57)
[2023-03-01] MEDS: IBUPROFEN 600 MG TAB PO PRN (23:18)
--- NOTE | 2023-03-02 06:40 | Obstetrical Progress Note ---
Date of Service March 02, 2023 Assessment & Plan Admission and Anticipated Discharge Date Admission Date: March 01, 2023 Results & Data Vital Signs (Past 12 Hours) Vital Signs Temp Pulse Resp BP Pulse Ox O2 Del Method 03/02/23 03:10 36.6 C 55 L 18 127/81 98 Room Air 03/01/23 23:10 36.5 C 64 18 117/72 98 Room Air 03/01/23 19:20 36.3 C L 60 18 123/77 99 Room Air
--- NOTE | 2023-03-02 06:49 | Obstetrical Progress Note ---
Date of Service <Leilani Benitez DO - Last Filed: 03/02/23 08:00> March 02, 2023 Assessment & Plan <Leilani Bob DO Emmanuel - Last Filed: 03/02/23 08:00> (1) care following vaginal delivery: Feels overall well today. Eating well, voiding well, ambulating well. Pain well controlled with prn analgesics. Routine care; OOB, ambulation, continue regular diet. After discharge will have 6 week follow-up with Dr. Butts. <Poonam Noland MD, FACOG - Last Filed: 03/02/23 07:40> (1) care following vaginal delivery: Subjective <Leilani Benitez DO - Last Filed: 03/02/23 08:00> Pt is a 38 y/o female who is PPD 1 following delivery at 38 6/7 weeks. She reports feeling overall well this morning. Mild abdominal cramping and 5/10 pain well managed on analgesics. Voiding. Tolerating meals overnight with no nausea/vomiting and able to ambulate on own. Has been passing gas but no bowel movement. Has some persistent lochia with some improvement this morning. Currently breast feeding. Constitutional: no fever, no chills or no sweats Respiratory: no dyspnea Cardiovascular: no chest pain or no palpitations Breast: no breast pain Genitourinary (female): no dysuria Neurologic: no headache(s) no changes in vision, no headaches Physical Exam <Leilani Benitez DO - Last Filed: 03/02/23 08:00> General: Alert, oriented. No acute distress. Cardiac: Regular rate and rhythm, no murmurs, rubs, or gallops. Respiratory: Clear to auscultation bilaterally a/p, no wheezes/rales/rhonchi. No increased work of breathing. Symmetrical chest rise. No respiratory distress. Abdomen: Soft, nontender, nondistended. Bowel sounds present. Uterus: Uterine fundus firm Lower extremities: No lower extremity edema or swelling. No deep calf pain. Eduard's negative bilaterally. Results & Data <Leilani Benitez DO - Last Filed: 03/02/23 08:00> Vital Signs (Past 12 Hours) Vital Signs Temp Pulse Resp BP Pulse Ox O2 Del Method 03/02/23 03:10 36.6 C 55 L 18 127/81 98 Room Air 03/01/23 23:10 36.5 C 64 18 117/72 98 Room Air 03/01/23 19:20 36.3 C L 60 18 123/77 99 Room Air <Poonam Noland MD, FACOG - Last Filed: 03/02/23 07:40> Co-Signing Physician Notes Resident Physician Supervision Note: I was present with Dr. Benitez during the history and exam. I discussed the case with the resident and agree with the findings and plan as documented in the note. Any exceptions or clarifications are listed here: [None] Documented By: Poonam Noland MD, FACOG Resident Activity Tracking <Leilani Benitez DO - Last Filed: 03/02/23 08:00> Resident Involvement: Resident Care Provided Care Provided: OB Delivery
[2023-03-02 07:03] LABS: Hematocrit (blood only) 27.6 % (37.0-47.0); Hemoglobin 9.5 g/dl (12.0-16.0); Mean Corpuscular Hemoglobin 30.7 pg (25.0-34.0); Mean Corpuscular Hgb Conc 34.4 g/dL (32.0-36.0); Mean Corpuscular Volume 89.3 fL (80.0-100.0); Mean Platelet Volume 11.4 fL (9.4-12.4); Platelet Count 168 K/uL (130-400); RDW Coefficient of Variation 12.8 % (11.5-14.5); RDW Standard Deviation 41.7 fL (36.4-46.3); Red Blood Count 3.09 M/uL (4.20-5.40); White Blood Count 12.64 K/ul (4.8-10.8)
[2023-03-02] MEDS ORDERED: PRENATAL VITAMIN 1 TAB PO SCH (08:00)
[2023-03-02] MEDS: DOCUSATE SODIUM 100 MG CAP PO SCH (09:00)
[2023-03-02] MEDS: IBUPROFEN 600 MG TAB PO PRN ×2 (09:00→13:32)
[2023-03-02] MEDS ORDERED: bisacodyL 5 MG TABEC PO SCH (20:00)
== END 2023-03-02 16:00 | disposition home or self-care (01) | DRG 807 ==
LOC: OPB 23:34 → 4S1 23:39 → 4E2 03-01 16:55